=== PATIENT | male | born 1980 | race African-American/Black ===

== ENCOUNTER → 2021-06-13 | Outpatient (CLI) | payer OTHER ==
--- NOTE | 2021-06-13 11:44 | REP ---
INDICATION: PAIN IN LEFT LEG COMPARISON: None. TECHNIQUE: Frontal view of the pelvis with neutral and frog lateral views of the left hip. FINDINGS: Patient is noted to be status post open reduction and fixation for left femur fracture. Orthopedic hardware is in seemingly satisfactory normal position including intramedullary jluis and retaining screws through the femoral neck and distal femoral metaphysis. Chronic posttraumatic wavy smooth periosteal reaction through the mid femur at the presumed fracture noted along with small amount of calcification just above the proximal portion of the intramedullary jluis at the greater trochanter. The left hip joint demonstrates minimally increased sclerosis along the acetabular roof with mild joint space narrowing which appears relatively symmetric as compared to the right hip. No evidence for acute fracture or dislocation. IMPRESSION: 1. Relatively normal appearance of the pelvis and symmetric appearance of the bilateral hip joints.. 2. Patient is noted to be status post open reduction and fixation for femur fracture. <Electronically signed by Anson Menjivar > 06/13/21 [id number]
--- NOTE | 2021-06-13 12:22 | REP ---
INDICATION: PAIN IN LEFT LEG. COMPARISON: None. TECHNIQUE: Four views. The sunrise view of the left knee has been erroneously placed in this ankle folder. This should be fixed the technologist who performed the exam. FINDINGS: No acute fracture or destructive osseous lesion. The mortise is intact. IMPRESSION: The ankle is within normal limits. <Electronically signed by John Paul Vogel > 06/13/21 1987
--- NOTE | 2021-06-13 12:24 | REP ---
INDICATION: PAIN IN LEFT LEG COMPARISON: None TECHNIQUE: AP, lateral, and sunrise view. The sunrise view has been erroneously placed in the patient's ankle folder. This should be fixed by the technologist who performed the exam. FINDINGS: The distal aspect of a femoral intramedullary jluis is identified. The tip does not breach the knee joint. There are 2 screws affixing the distal aspect of the jluis. Two cancellous screws are seen in the proximal tibial metaphysis. The proximal portion of an internal fixation plate with 2 affixing screws are identified. There is no evidence of an acute fracture, dislocation, or subluxation. IMPRESSION: Status post ORIF as described above. <Electronically signed by John Paul Vogel > 06/13/21 [id number]
== END ==
LOC: M RAD 11:05
PROVIDERS: ATTEND Family Medicine Addiction Medicine
DX: M79.605 Pain in left leg (principal)

== ENCOUNTER → 2023-02-03 | Outpatient (REF) | payer OTHER ==
[2023-02-03 09:47] LABS: SEMEN APPEARANCE OPAQUE (OPAQUE); SEMEN VISCOSITY LIQUID (LIQUID); SEMEN VOLUME 2.1 ml (2.0-5.0); SEMEN pH 8.5 (7.0-8.0); SPERM CONCENTRATION 20.7 M/ml (>=15.0); WBC CONCENTRATION <=1 M/ml (<=1 M/ml)
== END ==
LOC: M LAB REF 09:40
PROVIDERS: ATTEND Obstetrics & Gynecology Reproductive Endocrinology
DX: Z31.41 Encounter for fertility testing (principal)

== ENCOUNTER 2024-03-06 18:28 | Emergency (ER) | payer OTHER, SELFPAY ==
[~2024-03-06] VITALS: Ht 177.8 cm; Wt 72.5 kg
[2024-03-06 19:41] LABS: BASO # 0.1 10^3/uL (0.0-0.2); BASO % 1.1 % (0.0-1.0); EOS # 0.4 10^3/uL (0.0-0.5); EOS % 6.8 % (0.0-3.0); HEMATOCRIT 46.2 % (42.0-52.0); HEMOGLOBIN 16.2 g/dl (13.5-17.5); LYMPH # 1.8 10^3/uL (1.5-5.0); LYMPH % 33.1 % (24.0-44.0); MEAN CORPUSCULAR HEMOGLOBIN 32.3 pg (27.0-33.0); MEAN CORPUSCULAR HGB CONC 35.1 g/dl (32.0-36.5); MEAN CORPUSCULAR VOLUME 92.2 fl (80.0-96.0); MONO # 0.4 10^3/uL (0.0-0.8); NEUTROPHILS # 2.7 10^3/uL (1.5-8.5); NEUTROPHILS % 51.4 % (36.0-66.0); PLATELET COUNT, AUTOMATED 211 10^3/uL (150-450); RED BLOOD COUNT 5.01 10^6/uL (4.30-6.10); WHITE BLOOD COUNT 5.3 10^3/uL (4.0-10.0)
[2024-03-06 20:11] LABS: ALBUMIN 4.2 G/DL (3.2-5.2); ALKALINE PHOSPHATASE 66 U/L (46-116); ALT/SGPT 40 U/L (7.0-40); AST/SGOT 38 U/L (<34); BILIRUBIN,DIRECT 0.1 MG/DL (<0.4); BILIRUBIN,TOTAL 0.5 MG/DL (0.3-1.2); BLOOD UREA NITROGEN 13 MG/DL (9-23); CALCIUM LEVEL 9.8 MG/DL (8.5-10.1); CARBON DIOXIDE LEVEL 25 MMOL/L (20-31); CHLORIDE LEVEL 109 MMOL/L (98-107); CREATININE FOR GFR 1.01 MG/DL (0.70-1.30); GLOMERULAR FILTRATION RATE > 60.0 (>60); GLUCOSE, FASTING 98 MG/DL (60-100); POTASSIUM SERUM 4.5 MMOL/L (3.5-5.1); SODIUM LEVEL 141 MMOL/L (136-145); TOTAL PROTEIN 7.3 G/DL (5.7-8.2)
[2024-03-06 20:35] VITALS: BP 132/85; TEMP 97.2; O2SAT 98
[2024-03-06 20:45] LABS: APPEARANCE, URINE CLEAR (CLEAR); BACTERIA, URINE AUTO NEGATIVE (NEGATIVE); BILIRUBIN, URINE AUTO NEGATIVE (NEGATIVE); BLOOD, URINE BLOOD NEGATIVE (NEGATIVE); COLOR, URINE YELLOW (YELLOW); GLUCOSE, URINE (UA) AUTO NEGATIVE (NEGATIVE); KETONE, URINE AUTO NEGATIVE (NEGATIVE); LEUKOCYTE ESTERASE, URINE AUTO NEGATIVE (NEGATIVE); NITRITE, URINE AUTO NEGATIVE (NEGATIVE); PROTEIN, URINE AUTO NEGATIVE (NEGATIVE); RBC, URINE AUTO 0 /HPF (0-3); SPECIFIC GRAVITY URINE AUTO 1.014 (1.002-1.035); SQUAMOUS EPITHELIAL CELL UR AU 0 /HPF (0-6); WBC, URINE AUTO 0 /HPF (0-3)
== END 2024-03-06 20:41 | disposition home or self-care (01) ==
LOC: M ED 18:28
DX: I10 Essential (primary) hypertension (principal); F17.200 Nicotine dependence, unspecified, uncomplicated; F10.10 Alcohol abuse, uncomplicated; J30.1 Allergic rhinitis due to pollen; E73.9 Lactose intolerance, unspecified